=== PATIENT | female | born 1955 | race Two or more races ===

== ENCOUNTER 2023-03-09 10:49 | Emergency (ER) | payer MEDICARE, BC ==
[~2023-03-09] VITALS: Ht 175.3 cm; Wt 71.2 kg
[2023-03-09 14:10] LABS: BASOPHILS % (AUTO) 0.4 % (0.0-2.0); EOSINOPHILS % (AUTO) 0.2 % (0.0-6.0); HEMATOCRIT 41 % (33-45); HEMOGLOBIN 13.4 g/dL (11.5-14.8); LYMPHOCYTES # (AUTO) 0.9 K/uL (0.8-4.8); LYMPHOCYTES % (AUTO) 9.8 % (20.0-44.0); MEAN CORPUSCULAR HEMOGLOBIN 31 PG (26.0-33.0); MEAN CORPUSCULAR HGB CONC 33 g/dl (31.0-36.0); MEAN CORPUSCULAR VOLUME 93 fL (82-100); MONOCYTES # (AUTO) 0.4 K/uL (0.1-1.30); MONOCYTES % (AUTO) 4.8 % (2.0-12.0); NEUTROPHILS # (AUTO) 7.9 K/uL (1.8-8.9); NEUTROPHILS % (AUTO) 84.8 % (43.0-81.0); PLATELET COUNT (AUTO) 199 K/uL (150-450); RED BLOOD CELL COUNT(AUTO) 4.34 MIL/uL (4.0-5.2); RED CELL DISTRIBUTION WIDTH 13.8 % (11.5-15.0); WHITE BLOOD COUNT (AUTO) 9.4 K/uL (4.3-11.0)
[2023-03-09] MEDS ORDERED: IOHEXOL-300 100 ML VIAL IV ONE (14:10)
[2023-03-09] MEDS ORDERED: IV NS 0.9% 250 ML IV ONE (14:11)
[2023-03-09 14:26] LABS: INR 1.05 (0.91-1.10); PROTHROMBIN TIME 11.1 SECS (9.2-11.1)
[2023-03-09] MEDS ORDERED: THYR60TA2 PO (14:31)
[2023-03-09] MEDS ORDERED: ESTRADIOL TP (14:31)
[2023-03-09] MEDS ORDERED: TESTOSTERONE CREAM TP (14:31)
[2023-03-09] MEDS ORDERED: PROGESTERONE PO (14:31)
[2023-03-09 14:36] LABS: CALCIUM, SERUM 9.5 mg/dL (8.5-10.1); CREATININE 0.6 mg/dL (0.6-1.3); POTASSIUM 3.8 mmol/L (3.5-5.1)
[2023-03-09 14:41] LABS: BILIRUBIN,DIRECT 0.1 mg/dL (0.0-0.2); BILIRUBIN,TOTAL 0.3 mg/dL (0.2-1.0); TOTAL PROTEIN, SERUM 7.8 g/dL (6.4-8.2)
[2023-03-09 15:34] VITALS: BP 121/66; TEMP 97.9; O2SAT 97
== END 2023-03-09 15:35 | disposition short-term general hospital (02) ==
LOC: ER 11:18
DX: S12.200A Unspecified displaced fracture of third cervical vertebra, initial encounter for closed fracture (principal); R07.89 Other chest pain; Z88.8 Allergy status to other drugs, medicaments and biological substances; V49.50XA Passenger injured in collision with unspecified motor vehicles in traffic accident, initial encounter; Y93.89 Activity, other specified; Y92.89 Other specified places as the place of occurrence of the external cause; Y99.8 Other external cause status
CPT/HCPCS: 99285; 72125; 71045; 71260; 70450; 74177; 85025; 80048; 80076; 36415; 85730; 86850; J7050; A6403; Q9967